=== PATIENT | female | born 2000 | race Caucasian/White ===

== ENCOUNTER 2022-12-05 12:24 | Emergency (ER) | payer OTHER, SELFPAY ==
[2022-12-05 12:25] VITALS: BP 105/84; PULSE 87; RESP 18; TEMP 36.2; O2SAT 97; BMI 30.2
--- NOTE | 2022-12-05 12:26 | ED.GENADULT ---
HPI - General Adult General Chief complaint: Nausea/Vomiting/Diarrhea Stated complaint: seeking work note, was sick Time Seen by Provider: 12/05/22 12:26 Source: patient Mode of arrival: ambulatory History of Present Illness HPI narrative: 22-year-old female with no significant past medical history presenting to the ED complaining nausea, vomiting, and nonbloody diarrhea yesterday. Admits symptoms have improved today, is tolerating p.o. without difficulty, requesting work note to return to work. Admits sister was sick recently. Denies fever, chills, recent travel, suspicious food intake Onset (ago): day(s) Related Data Allergies Allergy/AdvReac Type Severity Reaction Status Date / Time No Known Allergies Allergy Verified 12/05/22 12:27 Review of Systems Review of Systems: Constitutional: No Fever, No Chills ENT/Mouth: No Ear Pain, No Nasal Congestion, No sore throat, No Rhinorrhea, No Swallowing Difficulty Cardiovascular: No Chest Pain, No SOB Respiratory: No Cough, No Sputum, No Wheezing Gastrointestinal: + Nausea (resolved), + Vomiting (resolved), + Diarrhea (improving), No Constipation, No Abdominal pain Genitourinary: No Dysuria, No Urinary Frequency, No Hematuria, No Flank Pain Musculoskeletal: No joint pain, No Myalgias, No Joint Swelling Skin: No Skin Lesions, No rash Neuro: No Weakness, No Numbness, No Paresthesias Yes all other systems are reviewed and are negative Constitutional: Constitutional: Reports as per [facility] Past Medical History Attestation statement: The following information was validated with the patient. Social History Social History Advance Directives: No Advance Directives Information Provided: Yes Physical Exam ED Vital Signs: Vital Signs - 24 hr 12/05/22 12:25 Temperature 97.2 F Pulse Rate 87 Respiratory Rate 18 Blood Pressure 105/84 Pulse Oximetry 97 Oxygen Delivery Method Room Air BMI result Body Mass Index 30.2 Const General: cooperative, healthy appearing and no acute distress Orientation/consciousness: patient oriented x3 Limitations: no limitations HENMT Head: Yes normal to inspection and Yes atraumatic Ears: hearing grossly normal bilaterally General nose exam: Normal external nose present Face and sinus: Yes normal facial exam Eyes General: appearance normal, both eyes and all related structures EOM: EOMs intact bilaterally Neck Neck: Yes normal visual inspection and Yes no meningeal signs Resp Effort & Inspection: normal respiratory effort and no respiratory distress Auscultation: clear to auscultation bilaterally, no crackles, no rales, no rhonchi and no wheezes Cardio Rate: regular rate Heart sounds: S1 normal heart sound present and S2 normal heart sound present GI Inspection: Yes normal to inspection Palpation (GI): Soft to palpation, nontender, no guarding and not rigid General: Yes no CVA tenderness Back/Spine/Pelvis Back: no CVA tenderness Skin Rashes: no rashes Wounds: no wounds Neuro General: patient oriented x3, tone normal and no meningeal signs Gait exam (Neuro): Normal gait present Extrem General: Yes normal to inspection Course Course Course Narrative: COVID-19/influenza/RSV negative Results discussed with patient including worrisome signs and symptoms and strict return precautions, and when to return to the emergency department. They verbalized understanding and feel safe for discharge at this time. Medical Decision Making Medical Decision Making MDM Narrative: 22-year-old female with no significant past medical history presenting to the ED complaining nausea, vomiting, and nonbloody diarrhea yesterday. On exam vital signs stable, NAD, nontoxic appearing, reports overall symptomatic improvement, abdomen soft/nontender, exam otherwise nonfocal. Concern for viral illness vs gastroenteritis vs food poisoning. Offered labs however patient not interested Plan: COVID-19/influenza/RSV testing Please refer to course for remaining clinical decision making, interpretation of labs/imaging results, and discussions with consultants and/or family members. Differential Diagnosis Differential Diagnoses: The differential diagnosis associated with the presentation includes as above Lab Data Labs: Lab Results 12/05/22 Range/Units 12:44 Influenza Type A (PCR) NEGATIVE (Negative) Influenza Type B (PCR) NEGATIVE (Negative) RSV RNA Qual (PCR) NEGATIVE (Negative) SARS-CoV-2 RNA (RT-PCR) NEGATIVE (Negative) Discharge Plan Discharge Clinical Impression: Acute viral syndrome Patient Disposition: Home, Self-Care Referrals: ED Physician,Generic [Physician] - Physician,None [Primary Care Provider] - Stand Alone Forms: Work/School Release
[2022-12-05 13:50] LABS: Influenza A PCR NEGATIVE (Negative); Influenza B PCR NEGATIVE (Negative); Resp Syncy Virus RNA Qual PCR NEGATIVE (Negative); SARS COV2 PCR INHOUSE NEGATIVE (Negative)
== END 2022-12-05 14:07 | disposition home or self-care (01) ==
PROVIDERS: Physician Assistant; Emergency Provider Emergency Medicine
DX: B34.9 Viral infection, unspecified (principal); R11.2 Nausea with vomiting, unspecified; Z20.822 Contact with and (suspected) exposure to COVID-19; Z20.828 Contact with and (suspected) exposure to other viral communicable diseases
CPT/HCPCS: 0241U; 99282; 99283